=== PATIENT | female | born 1985 | race Caucasian/White ===

== ENCOUNTER → 2020-09-20 13:19 | Outpatient (CLI) | payer MEDICAID, SELFPAY ==
--- NOTE | 2020-09-20 14:36 | NEURO_ITS ---
NCS and/or EMG Patient Report Ordering Doctor: José Smith NP DATE OF SERVICE: 09/20/20 Alix Knight presents for electrodiagnostic testing of the upper limbs. She reports numbness and tingling in both hands with associated weakness. 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 Electrodiagnostic findings: Median motor nerve demonstrates normal distal latency, amplitude and conduction velocity bilaterally. Ulnar motor responses are within normal limits, including conduction across the elbow. Normal median ulnar F waves. Sensory responses are within normal limits. On needle EMG, all muscles tested, including the cervical paraspinals, showed no evidence of denervation with normal motor unit action potentials. Electrodiagnostic assessment: This is a normal electrodiagnostic study of the upper limbs. There is no electrodiagnostic evidence for peripheral neuropathy including carpal tunnel or cubital tunnel syndrome. There is no electrodiagnostic evidence for cervical radiculopathy. If there are any further questions, please do not hesitate to contact me.
== END ==
PROVIDERS: PCP Nurse Practitioner Family; Referring Provider Nurse Practitioner Family; Visit Provider Nurse Practitioner Family
DX: R20.2 Paresthesia of skin (principal)
CPT/HCPCS: 95886; 95913